=== PATIENT | female | born 1965 | race Caucasian/White ===

== ENCOUNTER 2018-03-12 21:48 | Emergency (ER) | payer MEDICAID ==
[~2018-03-12] VITALS: Ht 172.7 cm; Wt 62.7 kg
[~2018-03-12 21:48] MED LIST: HYDR-569 PO; SOTA80TA73 PO
[2018-03-13 04:43] VITALS: BP 111/76
== END 2018-03-13 04:44 | disposition home or self-care (01) ==
LOC: ER 21:49
DX: N75.0 Cyst of Bartholin's gland (principal); I49.9 Cardiac arrhythmia, unspecified; Z90.710 Acquired absence of both cervix and uterus; Z98.890 Other specified postprocedural states; Z79.899 Other long term (current) drug therapy
CPT/HCPCS: 99283

== ENCOUNTER 2019-04-03 18:15 | Emergency (ER) | payer MEDICAID ==
[~2019-04-03] VITALS: Ht 172.7 cm; Wt 63.2 kg
[~2019-04-03 18:15] MED LIST changes: +HYDR-4383 PO; -HYDR-569 PO
[2019-04-03 18:50] LABS: CLARITY,URINE CLEAR (Clear); COLOR,URINE YELLOW (Yellow); GLUCOSE, URINE NEGATIVE (Neg); KETONES,URINE NEGATIVE (Neg); LEUKOCYTE ESTERASE ,URINE NEGATIVE (Neg); NITRITES, URINE NEGATIVE (Neg); OCCULT BLOOD,URINE NEGATIVE (Neg); PROTEIN,URINE NEGATIVE (Neg); UROBILINOGEN,URINE 0.2 E.U/dL (0.2-1.0)
[2019-04-03 18:52] LABS: BASOPHILS # (AUTO) 0.1 X10'3 (0-0.2); EOSINOPHILS % (AUTO) 0.4 % (0-6); HEMATOCRIT 39.4 % (35.0-45.0); HEMOGLOBIN 13.1 g/dl (12.0-16.0); LYMPHOCYTES # (AUTO) 1.6 X10'3 (1.1-4.8); LYMPHOCYTES % (AUTO) 21.2 % (21-51); MEAN CORPUSCULAR HEMOGLOBIN 29.8 PG (27.0-31.0); MEAN CORPUSCULAR HGB CONC 33.3 g/dL (33.0-36.5); MEAN CORPUSCULAR VOLUME 89.5 FL (78-98); MEAN PLATELET VOLUME 8.4 FL (7.4-10.4); MONOCYTES # (AUTO) 0.3 X10'3 (0-0.9); MONOCYTES % (AUTO) 4.6 % (2-12); NEUTROPHILS # (AUTO) 5.4 X10'3 (1.8-7.7); NEUTROPHILS % (AUTO) 72.8 % (42-75); PLATELET COUNT 244 X10'3 (140-440); WHITE BLOOD COUNT 7.5 X10'3 (4.5-11.0)
[2019-04-03 18:53] LABS: URINE HCG NEGATIVE (NEG)
[2019-04-03 18:55] LABS: UA COLLECTION TYPE CLN CATCH MIDSTREAM
[2019-04-03 19:03] LABS: ALANINE AMINOTRANSFERASE 29 U/L (12-78); ALBUMIN/GLOBULIN RATIO 1.1 (1.1-1.5); ALKALINE PHOSPHATASE 58 IU/L (46-116); ANION GAP 9 (8-16); ASPARTATE AMINO TRANSFERASE 19 U/L (10-37); BILIRUBIN,TOTAL 0.4 MG/DL (0.1-1.0); BLOOD UREA NITROGEN 10 MG/DL (7-18); BUN/CREATININE RATIO 11.8 (6.6-38.0); CALCIUM 9.3 MG/DL (8.5-10.1); CHLORIDE 106 MMOL/L (99-107); CREATININE 0.85 MG/DL (0.40-0.90); GLUCOSE 88 MG/DL (70-104); LIPASE 143 U/L (73-393); SODIUM 143 MMOL/L (135-145); TOTAL CARBON DIOXIDE 27.8 MMOL/L (24-32); TOTAL PROTEIN 7.6 G/DL (6.4-8.2); eGFR 70 ML/MIN
--- NOTE | 2019-04-03 19:10 | NUR ---
PT MOVED TO [facility] OB ROOM FOR VAGINAL EXAM PER DR PARKS REQUEST.
--- NOTE | 2019-04-03 19:20 | NUR ---
CHAPERONED DR PARKS FOR VAGINAL EXAM.
--- NOTE | 2019-04-03 19:58 | NUR ---
ULTRASOUND IN ROOM.
[2019-04-03 21:03] VITALS: BP 136/85
== END 2019-04-03 21:07 | disposition home or self-care (01) ==
LOC: ER 18:15
DX: R10.13 Epigastric pain (principal); R10.2 Pelvic and perineal pain; R14.0 Abdominal distension (gaseous); R63.0 Anorexia; K59.00 Constipation, unspecified; Z90.710 Acquired absence of both cervix and uterus; Z98.890 Other specified postprocedural states; Z79.01 Long term (current) use of anticoagulants; Z79.899 Other long term (current) drug therapy
CPT/HCPCS: 36415; 76830; 76856; 80053; 81003; 81025; 83690; 85025; 85610; 99284

== ENCOUNTER 2021-05-31 16:47 | Emergency (ER) | payer MEDICAID ==
[~2021-05-31] VITALS: Ht 172.7 cm; Wt 63.6 kg
[2021-05-31 17:06] VITALS: BP 113/60
[2021-05-31 18:58] LABS: UA COLLECTION TYPE CLN CATCH MIDSTREAM
[2021-05-31 18:59] LABS: CLARITY,URINE SLIGHTLY CLOUDY (Clear); COLOR,URINE YELLOW (Yellow); GLUCOSE, URINE NEGATIVE (Neg); KETONES,URINE 40 mg/dl (Neg); LEUKOCYTE ESTERASE ,URINE NEGATIVE (Neg); NITRITES, URINE NEGATIVE (Neg); OCCULT BLOOD,URINE NEGATIVE (Neg); PROTEIN,URINE NEGATIVE (Neg); UROBILINOGEN,URINE 0.2 E.U/dL (0.2-1.0)
[2021-05-31 19:31] LABS: BACTERIA,URINE FEW /HPF (Neg); RBC,URINE 0-2 /HPF (0-2); SQUAMOUS EPITHELIAL CELL,UR MODERATE /LPF (FEW); WBC,URINE 0-4 /HPF (0-4)
== END 2021-05-31 22:30 | disposition left against medical advice (07) ==
LOC: ER 16:48
DX: R30.0 Dysuria (principal); R50.9 Fever, unspecified; Z53.21 Procedure and treatment not carried out due to patient leaving prior to being seen by health care provider; Z90.710 Acquired absence of both cervix and uterus; Z98.890 Other specified postprocedural states; Z79.899 Other long term (current) drug therapy
CPT/HCPCS: 81001

== ENCOUNTER 2023-06-06 12:54 | Outpatient (CLI) | payer MEDICAID | END 2023-06-06 23:59 | disposition home or self-care (01) | LOC: RAD 12:54 | PROVIDERS: ATTEND Internal Medicine Cardiovascular Disease | DX: J98.4 Other disorders of lung (principal); R01.1 Cardiac murmur, unspecified; I49.9 Cardiac arrhythmia, unspecified; M47.814 Spondylosis without myelopathy or radiculopathy, thoracic region; M79.89 Other specified soft tissue disorders; Z98.82 Breast implant status | CPT/HCPCS: 75571 ==

== ENCOUNTER 2023-06-26 10:26 | Outpatient (CLI) | payer MEDICAID ==
[2023-06-26] MEDS ORDERED: iohexol 300mg/ml 100ml inj. ONE (10:38)
== END 2023-06-26 23:59 | disposition home or self-care (01) ==
LOC: RAD 10:26
PROVIDERS: ATTEND Family Medicine
DX: J98.11 Atelectasis (principal); R91.8 Other nonspecific abnormal finding of lung field
CPT/HCPCS: 71260; J3490; Q9967

== ENCOUNTER 2024-04-15 13:38 | Outpatient (CLI) | payer MEDICAID | END 2024-04-15 23:59 | disposition home or self-care (01) | LOC: 64 CT 13:38 | PROVIDERS: ATTEND Podiatrist Foot & Ankle Surgery | DX: S92.354A Nondisplaced fracture of fifth metatarsal bone, right foot, initial encounter for closed fracture (principal); M79.671 Pain in right foot; X58.XXXA Exposure to other specified factors, initial encounter; Y93.89 Activity, other specified; Y92.89 Other specified places as the place of occurrence of the external cause; Y99.8 Other external cause status | CPT/HCPCS: 73700 ==